=== PATIENT | male | born 1945 | race Caucasian/White ===

== ENCOUNTER 2022-10-15 08:47 | Outpatient (CLI) | payer MEDICARE, BC | END 2022-10-15 08:48 | disposition home or self-care (01) | LOC: TBSIIMAG 08:47 | PROVIDERS: ATTEND Neurological Surgery | DX: S32.049A Unspecified fracture of fourth lumbar vertebra, initial encounter for closed fracture (principal) | CPT/HCPCS: 72100 ==

== ENCOUNTER 2022-11-20 13:21 | Outpatient (CLI) | payer MEDICARE, BC | END 2022-11-20 13:22 | disposition home or self-care (01) | LOC: TBSIIMAG 13:21 | PROVIDERS: ATTEND Neurological Surgery | DX: M48.56XA Collapsed vertebra, not elsewhere classified, lumbar region, initial encounter for fracture (principal); M47.816 Spondylosis without myelopathy or radiculopathy, lumbar region; M43.8X6 Other specified deforming dorsopathies, lumbar region | CPT/HCPCS: 72100 ==

== ENCOUNTER 2022-12-30 12:28 | Outpatient (CLI) | payer MEDICARE, BC | END 2022-12-30 12:29 | disposition home or self-care (01) | LOC: BICRAD 12:28 | PROVIDERS: ATTEND Neurological Surgery | DX: S32.049A Unspecified fracture of fourth lumbar vertebra, initial encounter for closed fracture (principal) | CPT/HCPCS: 72100 ==

== ENCOUNTER 2023-02-10 11:52 | Outpatient (CLI) | payer MEDICARE, BC | END 2023-02-10 11:53 | disposition home or self-care (01) | LOC: RAD 11:52 | PROVIDERS: ATTEND Neurological Surgery | DX: M48.56XA Collapsed vertebra, not elsewhere classified, lumbar region, initial encounter for fracture (principal); R29.890 Loss of height | CPT/HCPCS: 72100 ==